=== PATIENT | female | born 1990 | race Caucasian/White ===

== ENCOUNTER 2019-07-31 20:50 | Emergency (ER) | payer MEDICAID ==
[~2019-07-31] VITALS: Ht 157.5 cm; Wt 63.5 kg
[2019-07-31] MEDS ORDERED: LORAZEPAM 1 MG TABLET ONE (21:10)
[2019-07-31 21:14] VITALS: BP 110/71
--- NOTE | 2019-07-31 21:14 | NUR ---
Patient discharged to home in stable conditon. Written and verbal after care instructions given. Patient verbalizes understanding of instructions.
[2019-07-31] MEDS ORDERED: LORAZEPAM 0.5 MG TABLET PO ONE (21:15)
== END 2019-07-31 21:14 | disposition home or self-care (01) ==
LOC: ER 20:50
DX: F41.9 Anxiety disorder, unspecified (principal)
CPT/HCPCS: A4663

== ENCOUNTER 2019-08-13 22:20 | Emergency (ER) | payer MEDICAID, OTHER ==
[~2019-08-13] VITALS: Ht 160 cm; Wt 59.4 kg
--- NOTE | 2019-08-13 22:52 | NUR ---
Patient came in the ER with chief complain of N/V with hematemesis, dizziness and rash to chest area since yesterday. Rashes appears red and some area elevated. Denies any itchiness on affected area.
--- NOTE | 2019-08-13 23:05 | NUR ---
Dr. Painting on bedside for MSE.
[2019-08-13] MEDS ORDERED: PANTOPRAZOLE SODIUM 40 MG VIAL IV ONE (23:15)
[2019-08-13] MEDS ORDERED: ONDANSETRON 4 MG/2 ML VIAL IV ONE (23:15)
[2019-08-13] MEDS ORDERED: IV NORMAL SALINE 1000 ML BAG IV ONE (23:15)
[2019-08-13] MEDS ORDERED: ONDANSETRON 4 MG/2 ML VIAL ONE (23:27)
[2019-08-13] MEDS ORDERED: PANTOPRAZOLE SODIUM 40 MG VIAL ONE (23:27)
[2019-08-13 23:33] LABS: BASOPHILS % (AUTO) 0.6 % (0.0-2.0); EOSINOPHILS # (AUTO) 0.1 K/uL (0.0-0.7); EOSINOPHILS % (AUTO) 1.8 % (0.0-7.0); HEMATOCRIT 38.8 % (31.2-41.9); HEMOGLOBIN 13.5 g/dL (10.9-14.3); LYMPHOCYTES # (AUTO) 1.6 K/uL (20.0-40.0); LYMPHOCYTES % (AUTO) 31.8 % (20.5-51.5); MEAN CORPUSCULAR HEMOGLOBIN 29.5 uug (24.7-32.8); MEAN CORPUSCULAR HGB CONC 35 g/dL (32.3-35.6); MEAN CORPUSCULAR VOLUME 84.8 fL (75.5-95.3); MONOCYTES # (AUTO) 0.5 K/uL (2.0-10.0); MONOCYTES % (AUTO) 11.2 % (0.0-11.0); NEUTROPHILS # (AUTO) 2.7 K/uL (1.8-8.9); NEUTROPHILS % (AUTO) 54.6 % (38.5-71.5); PLATELET COUNT (AUTO) 283 K/uL (179-408); RED BLOOD CELL COUNT(AUTO) 4.58 MIL/uL (3.63-4.92); WHITE BLOOD COUNT (AUTO) 4.9 K/uL (3.8-11.8)
--- NOTE | 2019-08-13 23:33 | NUR ---
Informed Photo Finish Photographer Darius of CXR order.
[2019-08-13 23:42] LABS: BILIRUBIN,DIRECT 0.2 mg/dL (0.0-0.2); BILIRUBIN,TOTAL 0.7 mg/dL (0.2-1.0); CREATININE 0.8 mg/dL (0.6-1.3); POTASSIUM 3.2 mmol/L (3.5-5.1); TOTAL PROTEIN, SERUM 9.2 g/dL (6.4-8.2)
[2019-08-14] MEDS ORDERED: ONDANSETRON 4 MG/2 ML VIAL ONE (00:03)
[2019-08-14] MEDS ORDERED: ONDANSETRON 4 MG/2 ML VIAL IV ONE (00:15)
[2019-08-14 00:26] LABS: *BLOOD, URINE 2+ (NEGATIVE); *CLARITY,URINE CLEAR (CLEAR); *COLOR,URINE YELLOW (YELLOW); *KETONES,URINE 4+ (NEGATIVE); *UROBILINOGEN,URINE 0.2 E.U./dl (NORMAL); LEUKOCYTE ESTERASE ,URINE NEGATIVE (NEGATIVE); NITRITE, URINE NEGATIVE (NEGATIVE); UGLUCOSE NEGATIVE (NEGATIVE)
[2019-08-14 00:30] LABS: *BILIRUBIN,URIN 1+ (NEGATIVE)
[2019-08-14] MEDS ORDERED: METOCLOPRAMIDE HCL 10 MG/2 ML VIAL IV ONE (00:30)
[2019-08-14] MEDS ORDERED: diphenhydrAMINE 50 MG/1 ML VIAL IV ONE (00:30)
--- NOTE | 2019-08-14 00:44 | NUR ---
Patient denies any further nausea or abdominal pain.Stated she does not need any more medication for nausea or gastritis Dr. Painting made aware and cancelled order for Benadryl and Reglan.
[2019-08-14 00:51] LABS: BACTERIA,URINE MODERATE /HPF (NONE SEEN); SQUAMOUS EPITHELIAL CELL,UR MANY /HPF (NONE SEEN)
--- NOTE | 2019-08-14 01:20 | NUR ---
PO challenge done. Patient denies any N/V. Continue to monitor.
--- NOTE | 2019-08-14 01:23 | NUR ---
Dr. Painting on bedside.
[2019-08-14 01:39] VITALS: BP 106/72
--- NOTE | 2019-08-14 01:41 | NUR ---
Patient discharged to home in stable conditon. Written and verbal after care instructions given. Patient verbalizes understanding of instructions. Pt ambulated out of the ER with steady gait. All belongings with pt.
== END 2019-08-14 01:35 | disposition home or self-care (01) ==
LOC: ER 22:20
DX: K29.70 Gastritis, unspecified, without bleeding (principal)
CPT/HCPCS: 36415; 71045; 80048; 80076; 81000; 81001; 83690; 84702; 85025; 86850; 86900; 86901; 87086; 96361; 96374; 96375; 96376; 99284; C9113; J2405 ×2; J7030

== ENCOUNTER 2019-09-07 18:08 | Emergency (ER) | payer OTHER ==
[~2019-09-07] VITALS: Ht 157.5 cm; Wt 65.8 kg
--- NOTE | 2019-09-07 18:29 | NUR ---
Patient discharged to home in stable conditon. Written and verbal after care instructions given. Patient verbalizes understanding of instructions. AMBULATORY W. STABLE GAIT ALL BELONGINGS W/ PT
[2019-09-07 18:30] VITALS: BP 114/75
== END 2019-09-07 18:31 | disposition home or self-care (01) ==
LOC: ER 18:16
DX: B37.9 Candidiasis, unspecified (principal); G43.909 Migraine, unspecified, not intractable, without status migrainosus
CPT/HCPCS: A4663

== ENCOUNTER 2019-12-20 21:05 | Emergency (ER) | payer OTHER ==
[~2019-12-20] VITALS: Ht 162.6 cm; Wt 59.0 kg
--- NOTE | 2019-12-20 21:48 | NUR ---
PATIENT WAS MSE BY DR MAHMOOD WITH AL SWIFT AT BEDSIDE.
[2019-12-20] MEDS ORDERED: ONDANSETRON ODT 4 MG TAB.RAPDIS SL ONE (22:00)
[2019-12-20] MEDS ORDERED: ONDANSETRON ODT 4 MG TAB.RAPDIS ONE (22:05)
[2019-12-20 22:10] LABS: BASOPHILS % (AUTO) 0.5 % (0.0-2.0); EOSINOPHILS # (AUTO) 0.1 K/uL (0.0-0.7); EOSINOPHILS % (AUTO) 1.8 % (0.0-7.0); HEMATOCRIT 35.9 % (31.2-41.9); LYMPHOCYTES # (AUTO) 1.7 K/uL (20.0-40.0); LYMPHOCYTES % (AUTO) 28.7 % (20.5-51.5); MEAN CORPUSCULAR HEMOGLOBIN 28.9 uug (24.7-32.8); MEAN CORPUSCULAR HGB CONC 33 g/dL (32.3-35.6); MEAN CORPUSCULAR VOLUME 86.6 fL (75.5-95.3); MONOCYTES # (AUTO) 0.7 K/uL (2.0-10.0); NEUTROPHILS # (AUTO) 3.4 K/uL (1.8-8.9); PLATELET COUNT (AUTO) 289 K/uL (179-408); RED BLOOD CELL COUNT(AUTO) 4.15 MIL/uL (3.63-4.92)
[2019-12-20 22:20] LABS: CREATININE 0.8 mg/dL (0.6-1.3); POTASSIUM 4.2 mmol/L (3.5-5.1)
[2019-12-20 22:21] LABS: *BILIRUBIN,URIN NEGATIVE (NEGATIVE); *BLOOD, URINE NEGATIVE (NEGATIVE); *CLARITY,URINE CLOUDY (CLEAR); *COLOR,URINE YELLOW (YELLOW); *KETONES,URINE NEGATIVE (NEGATIVE); *UROBILINOGEN,URINE 0.2 E.U./dl (NORMAL); LEUKOCYTE ESTERASE ,URINE NEGATIVE (NEGATIVE); NITRITE, URINE NEGATIVE (NEGATIVE); UGLUCOSE NEGATIVE (NEGATIVE)
[2019-12-20 22:23] LABS: *URINE HCG, QUAL NEGATIVE (NEGATIVE)
[2019-12-20 22:25] LABS: BILIRUBIN,DIRECT 0.1 mg/dL (0.0-0.2); BILIRUBIN,TOTAL 0.2 mg/dL (0.2-1.0); TOTAL PROTEIN, SERUM 8.5 g/dL (6.4-8.2)
[2019-12-20 22:30] LABS: SQUAMOUS EPITHELIAL CELL,UR MODERATE /HPF (NONE SEEN); WBC,URINE 0-3 /HPF (0-3)
[2019-12-20 22:31] LABS: URINE AMORPHOUS PHOSPHATES MANY /HPF
[2019-12-20 23:10] VITALS: BP 118/85
--- NOTE | 2019-12-20 23:10 | NUR ---
Patient discharged to home in stable condition. Written and verbal after care instructions given. Patient verbalizes understanding of instructions. Stressed follow up or return to ER for worsening s/s.
== END 2019-12-20 23:11 | disposition home or self-care (01) ==
LOC: ER 21:07
DX: K80.20 Calculus of gallbladder without cholecystitis without obstruction (principal); L30.9 Dermatitis, unspecified
CPT/HCPCS: 36415; 83690; 84703; 85025; A4663; Q0162

== ENCOUNTER 2020-03-20 22:44 | Emergency (ER) | payer SELFPAY ==
--- NOTE | 2020-03-20 23:39 | NUR ---
Patient left without being triaged or seen by ERMD
== END 2020-03-20 23:40 | disposition left against medical advice (07) ==
LOC: ER 22:46
DX: Z75.3 Unavailability and inaccessibility of health-care facilities (principal)

== ENCOUNTER 2020-03-22 11:35 | Emergency (ER) | payer OTHER ==
[~2020-03-22] VITALS: Ht 157.5 cm; Wt 62.6 kg
--- NOTE | 2020-03-22 12:10 | NUR ---
Abner cook in [facility] - 03/22/20 at 1240 by JOHN Admin dilaudid -- left gluteal.
--- NOTE | 2020-03-22 12:10 | NUR ---
Abner cook in [facility] - 03/22/20 at 1240 by JOHN Gave pt RX and d/c instructions, pt verbalized understanding. Pt advised not to drive.
[2020-03-22] MEDS ORDERED: FLUORESCEIN SODIUM 1 MG STRIP OP ONE (12:15)
[2020-03-22] MEDS ORDERED: FLUORESCEIN SODIUM 1 MG STRIP ONE (12:18)
[2020-03-22] MEDS ORDERED: SULFACETAMIDE SOD 10% OPHT DR 15 ML BOTTLE ONE (12:29)
[2020-03-22] MEDS ORDERED: SULFACETAMIDE SOD 10% OPHT DR 15 ML BOTTLE OP ONE (12:30)
--- NOTE | 2020-03-22 12:40 | NUR ---
Patched right eye. Gave pt d/c instructions, pt verbalized understanding. Pt advised about driving.
== END 2020-03-22 12:43 | disposition home or self-care (01) ==
LOC: ER 11:37
DX: S05.01XA Injury of conjunctiva and corneal abrasion without foreign body, right eye, initial encounter (principal); X58.XXXA Exposure to other specified factors, initial encounter; Y92.89 Other specified places as the place of occurrence of the external cause
CPT/HCPCS: A4663